=== PATIENT | male | born 1965 | race Caucasian/White ===

== ENCOUNTER 2017-03-08 19:27 | Emergency (ER) | payer OTHER ==
[~2017-03-08] VITALS: Ht 182.9 cm; Wt 95.3 kg
[~2017-03-08 19:27] MED LIST: ALPR2TAB1 PO; CARI350T PO; DIVA500T1 PO; HYDR-4452 PO; OMEP40EC1 PO; QUET200T PO; SERT50TA PO; TEMA30CA23 PO
[2017-03-08 19:35] VITALS: BP 162/94
--- NOTE | 2017-03-08 19:50 | NUR ---
PATIENT PRESENTS TO ED WITH CHEST PAIN, SOB AND LEFT ARM PAIN . PT DENIES N/V/D; SKIN IS PINK/WARM/DRY; AAOX4 WITH EVEN AND STEADY GAIT; LUNGS CLEAR BL; HR EVEN AND REGULAR; PT DENIES ANY FEVER OR COUGH AT THIS TIME; PATIENT STATES PAIN OF 9/10 AT THIS TIME; VSS; PATIENT POSITIONED FOR COMFORT; HOB ELEVATED; BEDRAILS UP X2; BED DOWN. ER MD MADE AWARE OF PT STATUS.
--- NOTE | 2017-03-08 19:50 | NUR ---
TO ER BED 7 VIA MOTORIZED WHEELCHAIR
--- NOTE | 2017-03-08 19:56 | NUR ---
Diana ren in [facility] - 03/08/17 at 2236 by [facility] TO ER BED 7 VIA MOTORIZED WHEELCHAIR
[2017-03-08] MEDS ORDERED: HYDROmorphone 1 MG/ML AMP IM ONE (20:20)
[2017-03-08 21:00] LABS: BASOPHILS # (AUTO) 0.2 K/uL (0.00-0.22); BASOPHILS % (AUTO) 2.1 % (0.0-2.0); EOSINOPHILS # (AUTO) 0.2 K/uL (0-0.4); EOSINOPHILS % (AUTO) 1.6 % (0.0-4.0); HEMATOCRIT 40.8 % (36-52); HEMOGLOBIN 13.8 g/dL (12.0-18.0); LYMPHOCYTES # (AUTO) 3.5 K/uL (2.0-11.5); LYMPHOCYTES % (AUTO) 34.6 % (20.5-51.1); MEAN CORPUSCULAR HEMOGLOBIN 30 pg (27-31); MEAN CORPUSCULAR HGB CONC 34 g/dL (33-37); MEAN CORPUSCULAR VOLUME 89 fL (80-94); MONOCYTES # (AUTO) 0.9 K/uL (0.8-1.0); MONOCYTES % (AUTO) 8.6 % (1.7-9.3); NEUTROPHILS # (AUTO) 5.4 K/uL (1.8-7.7); NEUTROPHILS % (AUTO) 53.1 % (42.2-75.2); PLATELET COUNT (AUTO) 283 K/uL (140-450); RED BLOOD CELL COUNT(AUTO) 4.61 MIL/uL (4.20-6.10); RED CELL DISTRIBUTION WIDTH 12.8 % (11.6-13.7); WHITE BLOOD COUNT (AUTO) 10.2 K/uL (4.8-10.8)
[2017-03-08 21:09] LABS: ANION GAP 14.8 (8-16); CALCIUM 8.3 mg/dL (8.5-10.1); CARBON DIOXIDE 23.1 mmol/L (21-32); CREATININE 0.8 mg/dL (0.7-1.3); POTASSIUM 3.9 mmol/L (3.5-5.1)
[2017-03-08 21:15] LABS: ALBUMIN 3.8 g/dL (3.4-5.0); TOTAL BILIRUBIN 0.2 mg/dL (0.0-1.0); TOTAL PROTEIN, SERUM 7.5 g/dL (6.4-8.2)
[2017-03-08 21:24] LABS: CREATINE KINASE MB 0.6 ng/mL (0-3.6)
[2017-03-08 22:15] VITALS: BP 134/89
--- NOTE | 2017-03-08 22:15 | NUR ---
Patient discharged with v/s stable. Written and verbal after care instructions given and explained. Patient verbalized understanding. Wheel Chair Assisted with to home. All questions addressed prior to discharge. Advised to follow up with PMD.
== END 2017-03-08 19:56 | disposition home or self-care (01) ==
LOC: MED 19:27
DX: R07.89 Other chest pain (principal); Z88.1 Allergy status to other antibiotic agents; Z88.5 Allergy status to narcotic agent; Z91.040 Latex allergy status; I10 Essential (primary) hypertension
CPT/HCPCS: 36415; 71010; 80053; 82550; 82553; 83690; 84484; 85025; 93005; 96372; 99285; J1170

== ENCOUNTER 2020-11-20 00:59 | Emergency (ER) | payer OTHER ==
[~2020-11-20] VITALS: Ht 182.9 cm; Wt 81.6 kg
[~2020-11-20 00:59] MED LIST changes: -HYDR-4452 PO; +HYDR-5191 PO; -OMEP40EC1 PO; +OMEP40EC24 PO
[2020-11-20 01:09] VITALS: BP 156/98
[2020-11-20 01:14] VITALS: BP 156/98
--- NOTE | 2020-11-20 01:17 | NUR ---
See complete assessment
--- NOTE | 2020-11-20 01:40 | NUR ---
Dr. Cristobal examining patient.
--- NOTE | 2020-11-20 02:00 | NUR ---
patient sitting quietly in the lobby.
--- NOTE | 2020-11-20 03:00 | NUR ---
patient is in no distress. Denies pain.
--- NOTE | 2020-11-20 04:00 | NUR ---
patient ambulated to [facility]
--- NOTE | 2020-11-20 05:21 | NUR ---
Patient discharged with v/s stable. Written and verbal after care instructions given and explained. Patient refused to sign; RN witnessed. Patient verbalized understanding. Wheel Chair Assisted with to outside lobby. All questions addressed prior to discharge. Advised to follow up with PMD. Addendum: 11/20/20 at 0524 by [facility] provided bus pass and food. Refused meal.
== END 2020-11-20 05:21 | disposition home or self-care (01) ==
LOC: MED 00:59
DX: G89.29 Other chronic pain (principal); R51.9 Headache, unspecified; M54.2 Cervicalgia; M79.602 Pain in left arm; M79.601 Pain in right arm; M79.605 Pain in left leg; M79.604 Pain in right leg; I10 Essential (primary) hypertension; Z88.1 Allergy status to other antibiotic agents; Z88.5 Allergy status to narcotic agent; Z88.8 Allergy status to other drugs, medicaments and biological substances; Z79.899 Other long term (current) drug therapy
CPT/HCPCS: 99281